=== PATIENT | male | born 1985 | race Caucasian/White ===

== ENCOUNTER 2016-08-03 17:21 | Emergency (ER) | payer OTHER ==
[2016-08-03] MEDS ORDERED: DIPH,PERTUS(ACELL)TETVAC-LF 0.5 ML VIAL IM ONE (17:52)
--- NOTE | 2016-08-03 18:24 | ED ---
Animal Bite HPI - General Chief Complaint: Animal Bite Stated Complaint: dog bite rt thumb Time Seen by Provider: 08/03/16 17:45 Source: patient Mode of arrival: ambulatory Limitations: no limitations - History of Present Illness Initial Comments: 31-year-old male presents emergency Department chief complaint of dog bite on his right thumb by his new 8-week-old puppy 3 days ago. Patient reports that he 's noticed some swelling over the distal thumb. Patient reports that he did squeeze and felt that there were some pus draining. Patient states that he has no redness or significant swelling or decreased range of motion. Patient reports he does not know the status of his tetanus vaccination. He reports that the dog has not received the rabies vaccine but is planning to this week. They state the has had no symptoms of rabies. Patient states that he does not want to undergo rabies prophylaxis.Patient denies any recent fever, chills, shortness of breath, chest pain, back pain, abdominal pain, nausea vomiting, numbness or tingling, dysuria or hematuria, constipation or diarrhea, headaches or visual changes, or any other current symptoms - Related Data Home Medications Medication Instructions Recorded Confirmed Albuterol Inhaler [Ventolin Hfa 2 puff INHALATION RT-Q6H PRN 08/03/16 08/03/16 Inhaler] Loratadine-Pseudoeph 10-240 mg 1 tab PO DAILY PRN 08/03/16 08/03/16 [Claritin-D 24 Hr] Previous Rx's Medication Instructions Recorded Amoxicillin/Potassium Clav 1 tab PO Q12HR #20 tab 08/03/16 [Augmentin 875-125 Tablet] Ibuprofen [Motrin] 600 mg PO Q8HR PRN #20 tab 08/03/16 Allergies Allergy/AdvReac Type Severity Reaction Status Date / Time No Known Allergies Allergy Verified 08/03/16 17:55 Review of Systems ROS Statement: Those systems with pertinent positive or pertinent negative responses have been documented in the HPI. ROS Other: All systems not noted in ROS Statement are negative. Past Medical History Past Medical History: No Reported History History of Any Multi-Drug Resistant Organisms: None Reported Past Surgical History: No Surgical Hx Reported Past Psychological History: PTSD Smoking Status: Current every day smoker Past Alcohol Use History: None Reported Past Drug Use History: Marijuana General Exam Limitations: no limitations General appearance: alert, in no apparent distress Head exam: Present: atraumatic, normocephalic, normal inspection Eye exam: Present: normal appearance, PERRL, EOMI. Absent: scleral icterus, conjunctival injection, periorbital swelling ENT exam: Present: normal exam, mucous membranes moist Neck exam: Present: normal inspection. Absent: tenderness, meningismus, lymphadenopathy Respiratory exam: Present: normal lung sounds bilaterally. Absent: respiratory distress, wheezes, rales, rhonchi, stridor Cardiovascular Exam: Present: regular rate, normal rhythm, normal heart sounds. Absent: systolic murmur, diastolic murmur, rubs, gallop, clicks GI/Abdominal exam: Present: soft, normal bowel sounds. Absent: distended, tenderness, guarding, rebound, rigid Extremities exam: Present: normal inspection, full ROM, normal capillary refill , other (Patient has superficial puncture wounds over the distal right thumb near the nail bed. Also the second finger near the proximal interphalangeal joint. No evidence of erythema, decreased range of motion or swelling. Patient does have full range motion and sensation in all distal fingertips. Capillary refill. Splint 2 seconds.). Absent: tenderness, pedal edema, joint swelling, calf tenderness Back exam: Present: normal inspection Neurological exam: Present: alert, oriented X3, CN II-XII intact Psychiatric exam: Present: normal affect, normal mood Skin exam: Present: warm, dry, intact, normal color. Absent: rash Course Vital Signs 08/03/16 08/03/16 17:34 18:32 Temperature 98.0 F 97.6 F Pulse Rate 65 64 Respiratory 20 18 Rate Blood Pressure 125/59 129/72 O2 Sat by Pulse 99 94 L Oximetry Medical Decision Making - Medical Decision Making 31-year-old male presents emergency Department chief complaint of dog bite on his right thumb by his new 8-week-old puppy 3 days ago. Patient reports that he 's noticed some swelling over the distal thumb. Patient reports that he did squeeze and felt that there were some pus draining. Patient states that he has no redness or significant swelling or decreased range of motion. Patient reports he does not know the status of his tetanus vaccination. He reports that the dog has not received the rabies vaccine but is planning to this week. They state the has had no symptoms of rabies. Patient states that he does not want to undergo rabies prophylaxis.Patient denies any recent fever, chills, shortness of breath, chest pain, back pain, abdominal pain, nausea vomiting, numbness or tingling, dysuria or hematuria, constipation or diarrhea, headaches or visual changes, or any other current symptoms. Patient's right thumb has 2 superficial puncture wounds and the second finger also does have another superficial puncture wound. No evidence of drainage at this time. No evidence of redness or swelling or decreased range of motion. Patient be placed on Augmentin and updated on his tetanus vaccine. He does refuse the rabies prophylaxis as he can monitor the dog. Patient states that he will follow-up if it seems to worsen. Patient agrees to treatment plan will comply. Disposition Clinical Impression: Dog bite of thumb Disposition: HOME SELF-CARE Condition: Good Instructions: Animal Bite (ED) Additional Instructions: Continue do warm soaks of the hand. Monitor for any worsening redness or swelling of the hands or fingers. Return to emergency department if that does occur. Patient denies to complete antibiotic prescription. Prescriptions: Amoxicillin/Potassium Clav [Augmentin 875-125 Tablet] 1 tab PO Q12HR #20 tab Ibuprofen [Motrin] 600 mg PO Q8HR PRN #20 tab PRN Reason: Pain Referrals: Pedro Pacheco DO [Primary Care Provider] - 1-2 days Time of Disposition: 18:22
[2016-08-03 18:33] VITALS: BP 129/72; PULSE 64; RESP 18; TEMP 97.6
== END 2016-08-03 18:48 | disposition home or self-care (01) ==
LOC: EC 17:21
DX: S60.371A Other superficial bite of right thumb, initial encounter (principal); S60.470A Other superficial bite of right index finger, initial encounter; F17.200 Nicotine dependence, unspecified, uncomplicated; Z23 Encounter for immunization; W54.0XXA Bitten by dog, initial encounter
CPT/HCPCS: 90471; 90715; 99283

== ENCOUNTER → 2017-07-02 | Outpatient (CLI) | payer OTHER ==
[2017-07-02 12:25] LABS: Basophils % (A) 0 %; Eosinophils # (A) 0.3 k/uL (0-0.7); Eosinophils % (A) 4 %; HCT 50.2 % (39.0-53.0); HGB 17.2 gm/dL (13.0-17.5); Lymphocytes # (A) 2.2 k/uL (1.0-4.8); Lymphocytes % (A) 26 %; MCH 30.7 pg (25.0-35.0); MCHC 34.3 g/dL (31.0-37.0); MCV 89.6 fL (80.0-100.0); Mean Platelet Volume 7.8; Monocytes # (A) 0.7 k/uL (0-1.0); Monocytes % (A) 8 %; Neutrophils # (A) 5.4 k/uL (1.3-7.7); Neutrophils % (A) 62 %; Platelet Count 230 k/uL (150-450); RDW 12.8 % (11.5-15.5); WBC 8.7 k/uL (3.8-10.6)
[2017-07-02 12:39] LABS: Potassium 4.4 mmol/L (3.5-5.1)
== END ==
LOC: LABWHC1 11:30
PROVIDERS: ATTEND Orthopaedic Surgery
DX: Z01.812 Encounter for preprocedural laboratory examination (principal); M23.91 Unspecified internal derangement of right knee
CPT/HCPCS: 36415; 80051; 85025

== ENCOUNTER 2017-07-12 06:09 | Day surgery (SDC) | payer OTHER ==
[2017-07-06 14:22] VITALS: BMI 33.5
--- NOTE | 2017-07-11 14:46 | HP ---
HISTORY AND PHYSICAL DATE OF SERVICE: 07/12/2017 Praveen Armas is a 32-year-old patient seen with right knee pain. He was found to have significant meniscal tears as well as an anterior cruciate ligament tear. Treatment options were discussed with him. We reviewed arthroscopy with partial meniscectomy as well as ACL reconstruction. Initially, he had agreed on that, but he did call back and decided against proceeding with the allograft ACL reconstruction and simply want to proceed with the arthroscopic debridement and partial meniscectomy. We understand that he may have some persistent instability and he may need additional surgery in the future. He was understandable. Consent was obtained for the partial meniscectomy and debridement. PAST MEDICAL HISTORY: Noncontributory. PAST SURGICAL HISTORY: Noncontributory. DAILY MEDICATIONS: None reported. SOCIAL HISTORY: Currently smokes half-pack cigarettes daily. PHYSICAL EVALUATION OF THE RIGHT KNEE: Range of motion is 0 to 130 degrees. There is a mild effusion. Tenderness along the medial and lateral joint lines. Positive medial Mino's. Positive lateral Mino's; +2 Jesus. Collateral ligaments are stable. Distal neurovascular exam is intact. . RIGHT KNEE RADIOGRAPHS: Revealed mild osteoarthritis. A right knee MRI revealed ACL tear, medial lateral meniscal tears, full-thickness osteochondral defect, lateral compartment and large joint effusion. IMPRESSION: Internal derangement of right knee with medial meniscal tear, lateral meniscal tear and ACL tear. PLAN: Right knee arthroscopy with partial meniscectomy, debridement, ACL tear. MMODL / IJN: [id number] /
[~2017-07-12 06:09] MED LIST: DEXAMETHASONE SOD PHOSPHATE 10 MG/ML 1 ML VIAL IV ONE; LACTATED RINGERS 1,000 ML IV SCH; MIDAZOLAM 2 MG/2 ML VIAL IV PRN; MORPHINE SULFATE 4 MG/ML SYRINGE IV PRN; ONDANSETRON 4 MG/2 ML VIAL IVP ONE; ceFAZolin IN SWFI 2 GM/20 ML SYRINGE IVP ONE
[2017-07-12 06:29] VITALS: RESP 16
[2017-07-12] MEDS ORDERED: LIDOCAINE 1% 20 ML VIAL (10MG/ML) FOR IV START INTRADERMA ONE (06:40)
[2017-07-12] MEDS ORDERED: LIDOCAINE 1% INJ 10MG/ML (20 ML MDV) ONE (07:29)
[2017-07-12] MEDS ORDERED: fentaNYL (PF) 50 MCG/ML 2 ML AMP ONE (07:29)
[2017-07-12] MEDS ORDERED: PROPOFOL 10 MG/ML 20 ML VIAL IV ONE (07:29)
[2017-07-12] MEDS ORDERED: SUCCINYLCHOLINE CHLORIDE 100 MG/5 ML SYR IV ONE (07:29)
[2017-07-12] MEDS ORDERED: MIDAZOLAM 2 MG/2 ML VIAL ONE (07:29)
[2017-07-12] MEDS ORDERED: KETOROLAC 30 MG/ML 1 ML VIAL ONE (07:29)
[2017-07-12] MEDS ORDERED: BUPIVACAINE (PF) 0.25% 30 ML VIAL INTRAARTIC ONE (07:47)
[2017-07-12] MEDS ORDERED: ACETAMINOPHEN IV (For NPO) 1,000 MG/100 ML VIAL IVPB ONE (08:28)
--- NOTE | 2017-07-12 08:31 | P.OP ---
Date of Procedure: 07/12/17 Preoperative Diagnosis: Internal derangement right knee Postoperative Diagnosis: 1. Tear medial and lateral meniscus right knee 2. Grade 2 chondromalacia medial femoral condyle right knee 3. 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 ACL tear right knee 5. Reactive synovitis medial and suprapatellar compartments right knee Procedure(s) Performed: 1. Arthroscopic partial medial and lateral meniscectomy right knee 2. Arthroscopic chondroplasty medial femoral condyle right knee 3. Arthroscopic chondroplasty lateral tibial plateau right knee 4. Arthroscopic debridement ACL tear right knee 5. Arthroscopic partial synovectomy medial and suprapatellar compartments right knee Anesthesia: GETA Surgeon: Juan Jose Estimated Blood Loss (ml): 9 Pathology: none sent Condition: stable Disposition: PACU Indications for Procedure: 32-year-old patient seen with right knee pain. After having treatment options discussed, he elected to proceed with arthroscopy. Operative Findings: see description of procedure Description of Procedure: Patient was taken to the operative suite. Patient underwent a general anesthetic by the department of anesthesia. Patient was given preoperative antibiotics. The right lower extremity was placed in a well-padded arthroscopic leg moore. The right leg was prepped and draped in the normal sterile orthopedic fashion. A lateral parapatellar and suprapatellar incision was made. Trochars were inserted. Arthroscopy was initiated. Suprapatellar pouch revealed diffuse thick reactive synovitis. The patellofemoral joint appeared to articulate congruently. There was no chondromalacia. The scope was guided into the medial gutter. No loose bodies or plica were identified. The scope was then guided into the medial compartment. A medial parapatellar incision was made. Trocar inserted followed by probe. There was a radial tear posterior horn medial meniscus. There was an area of grade 2 chondromalacia weightbearing surface medial femoral condyle with some small osteochondral tears present. There was some reactive synovitis anteriorly. I performed a partial medial meniscectomy down to stable tissue. I performed a chondroplasty medial femoral condyle down to stable tissue. I performed a partial synovectomy. The residual meniscus was stable. Scope and probe were then guided into the intercondylar notch. There was an obvious ACL tear present. Upon probing there may have been some very small residual intact fibers but essentially a functional a complete ACL tears pleasant with obvious instability. The PCL appeared stable. I introduced a motorized shaver and debrided the residual remnants of the skin ACL stump. The shaver was removed. There was full extension of the knee noted with no impingement in the notch.. The scope and probe were then guided into lateral compartment. There was a small radial tear mid body lateral meniscus. There was an area of grade 2 chondromalacia with a central fissure in the tibial plateau. No reactive synovitis, no loose bodies or abnormalities involving the lateral femoral condyle. I performed a chondroplasty to lateral tibial plateau getting down to stable articular tissue. Shaver was removed. The scope was in guided back into the suprapatellar compartment. I introduced a motorized shaver into the suprapatellar compartment. I debrided some piecemeal fragments of meniscus I encountered. I performed a partial synovectomy. Instruments were now removed from the joint. The joint was infiltrated with .25% Marcaine. Steri-Strips were applied to the portal sites. Sterile dressings were applied. The patient was placed into a ANDREW hose. No tourniquet was utilized. The patient was awakened, transferred to a bed and taken to recovery stable satisfactory condition.
[2017-07-12 08:35] VITALS: TEMP 96.9
[2017-07-12] MEDS: HYDROmorphone 0.5 MG/0.5 ML SYRINGE IVP PRN ×2 (08:51→09:02)
[2017-07-12 09:51] VITALS: BP 111/67; PULSE 60
== END 2017-07-12 10:09 | disposition home or self-care (01) ==
LOC: OR 06:09
PROVIDERS: ATTEND Orthopaedic Surgery
DX: S83.241A Other tear of medial meniscus, current injury, right knee, initial encounter (principal); S83.281A Other tear of lateral meniscus, current injury, right knee, initial encounter; S83.511A Sprain of anterior cruciate ligament of right knee, initial encounter; X58.XXXA Exposure to other specified factors, initial encounter; M94.261 Chondromalacia, right knee; M65.861 Other synovitis and tenosynovitis, right lower leg; F17.210 Nicotine dependence, cigarettes, uncomplicated
CPT/HCPCS: 29880; J2250; J1100; J2405; J2001; J3010; J1885; J0131; J0330; J2704; J1170; J0690

== ENCOUNTER 2017-10-12 10:00 | Emergency (ER) | payer OTHER ==
[2017-10-12] MEDS ORDERED: SODIUM CHLORIDE 0.9% 1,000 ML IV STA (10:34)
--- NOTE | 2017-10-12 10:41 | ED ---
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 He does smoke marijuana. Drinking hot liquids like coffee aggravates the heartburn he has ongoing heartburn but chest pain - Related Data Home Medications Medication Instructions Recorded Confirmed No Known Home Medications 10/12/17 10/12/17 Allergies Allergy/AdvReac Type Severity Reaction Status Date / Time No Known Allergies Allergy Verified 10/12/17 10:21 Review of Systems ROS Statement: Those systems with pertinent positive or pertinent negative responses have been documented in the HPI. ROS Other: All systems not noted in ROS Statement are negative. Past Medical History Past Medical History: No Reported History History of Any Multi-Drug Resistant Organisms: None Reported Past Surgical History: Orthopedic Surgery Additional Past Surgical History / Comment(s): right knee Past Psychological History: PTSD Smoking Status: Current every day smoker Past Alcohol Use History: None Reported Past Drug Use History: Marijuana General Exam - General Exam Comments Initial Comments: General: The patient is awake and alert, in no distress, and does not appear acutely ill. Skin: Skin is warm and dry and no rashes or lesions are noted. Eye: Pupils are equal, round and reactive to light, extra-ocular movements are intact; there is normal conjunctiva bilaterally. Ears, nose, mouth and throat: There are moist mucous membranes and no oral lesions. Neck: The neck is supple, there is no tenderness or JVD. Cardiovascular: There is a regular rate and rhythm. No murmur, rub or gallop is appreciated. Respiratory: To auscultation bilateral, no wheezing no rhonchi no distress respiratory downey noticed Gastrointestinal: Tender in epigastric area Back: There is no tenderness to palpation in the midline. There is no obvious deformity. Musculoskeletal: Normal ROM, no tenderness, There is no pedal edema. There is no calf tenderness or swelling. No cords were appreciated. Neurological: CN II-XII intact, Cranial nerves III through XII are intact. There are no obvious motor or sensory deficits. Coordination appears grossly intact. Speech is normal. Psychiatric: Cooperative, appropriate mood & affect, normal judgment. Limitations: no limitations Course Vital Signs 10/12/17 10/12/17 10:07 12:11 Temperature 97.3 F L 97.4 F L Pulse Rate 65 49 L Respiratory 18 18 Rate Blood Pressure 119/70 111/67 O2 Sat by Pulse 99 98 Oximetry Plan reassessment noticed him EKG is a sinus bradycardia ventricular rate 65 KS interval is 158 QRS duration is 88 QT/QTc is 438/419 noticed some T-wave inversion in lead [address] elevation or ST depression noticed any other leads Medical Decision Making - Medical Decision Making EKG is normal, CBC, INR, compress metabolic panel are unremarkable noticed CK slightly elevated is not high enough to be diagnosed as a reactive myolysis chest x-ray is fine EKG didn't show any STEMI troponin is negative so his urinalysis. These was discussed with the patient considering his family history of heart disease and risk factor of smoking he is advised to see Dr. Anaya and get a stress test done he has ongoing card that he he will continue or he will go on her PPIs and he would need a scope will refer him to . - Lab Data Result diagrams: 10/12/17 10:45 10/12/17 10:45 Lab Results 10/12/17 10/12/17 10/12/17 Range/Units 10:45 10:45 10:45 WBC 8.7 (3.8-10.6) k/uL RBC 5.23 (4.30-5.90) m/uL Hgb 15.8 (13.0-17.5) gm/dL Hct 49.0 (39.0-53.0) % MCV 93.6 (80.0-100.0) fL MCH 30.2 (25.0-35.0) pg MCHC 32.3 (31.0-37.0) g/dL RDW 13.3 (11.5-15.5) % Plt Count 208 (150-450) k/uL Neutrophils % 67 % Lymphocytes % 24 % Monocytes % 4 % Eosinophils % 4 % Basophils % 1 % Neutrophils # 5.8 (1.3-7.7) k/uL Lymphocytes # 2.1 (1.0-4.8) k/uL Monocytes # 0.3 (0-1.0) k/uL Eosinophils # 0.3 (0-0.7) k/uL Basophils # 0.0 (0-0.2) k/uL PT (9.0-12.0) sec INR (<1.2) APTT (22.0-30.0) sec Sodium 141 (137-145) mmol/L Potassium 4.3 (3.5-5.1) mmol/L Chloride 107 (98-107) mmol/L Carbon Dioxide 27 (22-30) mmol/L Anion Gap 7 mmol/L BUN 11 (9-20) mg/dL Creatinine 0.88 (0.66-1.25) mg/dL Est GFR (CKD-EPI)AfAm >90 (>60 ml/min/1.73 sqM) Est GFR (CKD-EPI)NonAf >90 (>60 ml/min/1.73 sqM) Glucose 114 H (74-99) mg/dL Plasma Lactic Acid Moises (0.7-2.0) mmol/L Calcium 9.9 (8.4-10.2) mg/dL Total Bilirubin 0.5 (0.2-1.3) mg/dL AST 36 (17-59) U/L ALT 48 (21-72) U/L Alkaline Phosphatase 50 (38-126) U/L Total Creatine Kinase 330 H (55-170) U/L CK-MB (CK-2) 0.8 (0.0-2.4) ng/mL CK-MB (CK-2) Rel Index 0.2 Troponin I <0.012 (0.000-0.034) ng/mL Total Protein 6.9 (6.3-8.2) g/dL Albumin 4.3 (3.5-5.0) g/dL Urine Color Urine Appearance (Clear) Urine pH (5.0-8.0) Ur Specific [place] (1.001-1.035) Urine Protein (Negative) Urine Glucose (UA) (Negative) Urine Ketones (Negative) Urine Blood (Negative) Urine Nitrite (Negative) Urine Bilirubin (Negative) Urine Urobilinogen (<2.0) mg/dL Ur Leukocyte Esterase (Negative) 10/12/17 10/12/1710/12/18 Range/Units 10:45 10:45 12:20 WBC (3.8-10.6) k/uL RBC (4.30-5.90) m/uL Hgb (13.0-17.5) gm/dL Hct (39.0-53.0) % MCV (80.0-100.0) fL MCH (25.0-35.0) pg MCHC (31.0-37.0) g/dL RDW (11.5-15.5) % Plt Count (150-450) k/uL Neutrophils % % Lymphocytes % % Monocytes % % Eosinophils % % Basophils % % Neutrophils # (1.3-7.7) k/uL Lymphocytes # (1.0-4.8) k/uL Monocytes # (0-1.0) k/uL Eosinophils # (0-0.7) k/uL Basophils # (0-0.2) k/uL PT 10.0 (9.0-12.0) sec INR 1.0 (<1.2) APTT 25.0 (22.0-30.0) sec Sodium (137-145) mmol/L Potassium (3.5-5.1) mmol/L Chloride (98-107) mmol/L Carbon Dioxide (22-30) mmol/L Anion Gap mmol/L BUN (9-20) mg/dL Creatinine (0.66-1.25) mg/dL Est GFR (CKD-EPI)AfAm (>60 ml/min/1.73 sqM) Est GFR (CKD-EPI)NonAf (>60 ml/min/1.73 sqM) Glucose (74-99) mg/dL Plasma Lactic Acid Moises 1.3 (0.7-2.0) mmol/L Calcium (8.4-10.2) mg/dL Total Bilirubin (0.2-1.3) mg/dL AST (17-59) U/L ALT (21-72) U/L Alkaline Phosphatase (38-126) U/L Total Creatine Kinase (55-170) U/L CK-MB (CK-2) (0.0-2.4) ng/mL CK-MB (CK-2) Rel Index Troponin I (0.000-0.034) ng/mL Total Protein (6.3-8.2) g/dL Albumin (3.5-5.0) g/dL Urine Color Light Yellow Urine Appearance Clear (Clear) Urine pH 7.0 (5.0-8.0) Ur Specific [place] 1.007 (1.001-1.035) Urine Protein Negative (Negative) Urine Glucose (UA) Negative (Negative) Urine Ketones Negative (Negative) Urine Blood Negative (Negative) Urine Nitrite Negative (Negative) Urine Bilirubin Negative (Negative) Urine Urobilinogen <2.0 (<2.0) mg/dL Ur Leukocyte Esterase Negative (Negative) Disposition Clinical Impression: Chest pain, Gastroesophageal reflux disease Disposition: HOME SELF-CARE Condition: Good Instructions: Chest Pain (ED) Additional Instructions: Aspirin 81 mg by mouth daily and omeprazole 20 mg by mouth daily is over-the- counter Is patient prescribed a controlled substance at d/c from ED?: No Referrals: None,Stated [Primary Care Provider] - 1-2 days Arnold Sandoval MD [STAFF PHYSICIAN] - 1-2 days Alvin Washburn MD [STAFF PHYSICIAN] - 1-2 days
[2017-10-12 11:15] LABS: ALT 48 U/L (21-72); AST 36 U/L (17-59); Albumin 4.3 g/dL (3.5-5.0); Alkaline Phosphatase 50 U/L (38-126); Anion Gap 7 mmol/L; Blood Urea Nitrogen 11 mg/dL (9-20); Calcium 9.9 mg/dL (8.4-10.2); Carbon Dioxide 27 mmol/L (22-30); Chloride 107 mmol/L (98-107); Glucose 114 mg/dL (74-99); Potassium 4.3 mmol/L (3.5-5.1); Sodium 141 mmol/L (137-145); Total Bilirubin 0.5 mg/dL (0.2-1.3); Total Protein 6.9 g/dL (6.3-8.2)
[2017-10-12 11:16] LABS: Basophils % (A) 1 %; Eosinophils # (A) 0.3 k/uL (0-0.7); Eosinophils % (A) 4 %; HGB 15.8 gm/dL (13.0-17.5); Lymphocytes # (A) 2.1 k/uL (1.0-4.8); Lymphocytes % (A) 24 %; MCH 30.2 pg (25.0-35.0); MCHC 32.3 g/dL (31.0-37.0); MCV 93.6 fL (80.0-100.0); Mean Platelet Volume 7.2; Monocytes # (A) 0.3 k/uL (0-1.0); Monocytes % (A) 4 %; Neutrophils # (A) 5.8 k/uL (1.3-7.7); Neutrophils % (A) 67 %; Platelet Count 208 k/uL (150-450); RBC 5.23 m/uL (4.30-5.90); RDW 13.3 % (11.5-15.5); WBC 8.7 k/uL (3.8-10.6)
--- NOTE | 2017-10-12 11:47 | XR ---
EXAMINATION TYPE: XR chest 2V DATE OF EXAM: 10/12/2017 COMPARISON: NONE HISTORY: Weakness and chest pain 3 days TECHNIQUE: Frontal and lateral views of the chest are obtained. FINDINGS: There is no focal air space opacity, pleural effusion, or pneumothorax seen. The cardiac silhouette size is within normal limits. The osseous structures are intact. There are overlying car diac leads. IMPRESSION: No acute cardiopulmonary process.
[2017-10-12 11:58] LABS: Creatine Kinase 330 U/L (55-170)
[2017-10-12 12:11] LABS: Creatine Kinase MB 0.8 ng/mL (0.0-2.4); Troponin I <0.012 ng/mL (0.000-0.034)
[2017-10-12 12:32] LABS: Appearance,Urine Clear (Clear); Bilirubin,Urine Negative (Negative); Blood,Urine Negative (Negative); Color,Urine Light Yellow; Glucose,Urine (UA) Negative (Negative); Ketones,Urine Negative (Negative); Leukocyte Esterase,Urine Negative (Negative); Nitrite,Urine Negative (Negative); Protein,Urine Negative (Negative); Specific Gravity,Urine 1.007 (1.001-1.035); Urobilinogen,Urine <2.0 mg/dL (<2.0)
[2017-10-12 13:08] VITALS: BP 102/68; PULSE 54; RESP 15; TEMP 97.2
== END 2017-10-12 13:23 | disposition home or self-care (01) ==
LOC: EC 10:00
DX: K21.9 Gastro-esophageal reflux disease without esophagitis (principal); R53.1 Weakness; R53.83 Other fatigue; F17.200 Nicotine dependence, unspecified, uncomplicated
CPT/HCPCS: 36415; 71046; 80053; 81003; 82550; 82553; 83605; 84484; 85025; 85610; 85730; 93005; 96360; 96361; 99285

== ENCOUNTER 2020-09-14 17:49 | Emergency (ER) | payer OTHER ==
[2020-09-14 17:55] VITALS: BP 118/75; PULSE 65; RESP 18; TEMP 97.7
[2020-09-14] MEDS ORDERED: KETOROLAC 15 MG/ML 1 ML VIAL IM STA (18:08)
--- NOTE | 2020-09-14 18:41 | XR ---
EXAMINATION TYPE: XR knee complete RT DATE OF EXAM: 09/14/2020 COMPARISON: NONE HISTORY: Knee pain TECHNIQUE: 3 views FINDINGS: I see no fracture nor dislocation. Joint spaces are normal. There are no pathologic calcifi cations. There is spurring on the superior patella. IMPRESSION: Negative right knee exam. No fracture.
--- NOTE | 2020-09-14 18:59 | ED ---
Lower Extremity Injury HPI - General Chief Complaint: Extremity Injury, Lower Stated Complaint: rt knee pain Time Seen by Provider: 09/14/20 18:04 Source: patient, RN notes reviewed Mode of arrival: wheelchair Limitations: no limitations - History of Present Illness Initial Comments: Patient is a 35-year-old male that presents emergency department complaining of right knee pain. He notes he has a history of chronic right knee pain such as [facility] and meniscus issues. He notes that he was walking in his backyard picking up sticks when he felt a sharp pain in his knee. 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 He notes that he does have a knee brace that he can wear if needed. He denied any other issues or complaints at this time. He denied any chest pain shortness breath headache nausea vomiting diarrhea constipation fever fatigue chills. - Related Data Home Medications Medication Instructions Recorded Confirmed Ibuprofen [Motrin Ib] 400 mg PO Q8H PRN 09/14/20 09/14/20 Allergies Allergy/AdvReac Type Severity Reaction Status Date / Time No Known Allergies Allergy Verified 09/14/20 18:48 Review of Systems ROS Statement: Those systems with pertinent positive or pertinent negative responses have been documented in the HPI. ROS Other: All systems not noted in ROS Statement are negative. Past Medical History Past Medical History: No Reported History History of Any Multi-Drug Resistant Organisms: None Reported Past Surgical History: Orthopedic Surgery Additional Past Surgical History / Comment(s): right knee Past Psychological History: PTSD Smoking Status: Current every day smoker Past Alcohol Use History: None Reported Past Drug Use History: None Reported, Marijuana General Exam Limitations: no limitations General appearance: alert, in no apparent distress Head exam: Present: atraumatic, normocephalic, normal inspection Eye exam: Present: normal appearance, PERRL, EOMI. Absent: scleral icterus, conjunctival injection, periorbital swelling Neck exam: Present: normal inspection Respiratory exam: Present: normal lung sounds bilaterally. Absent: respiratory distress, wheezes, rales, rhonchi, stridor Cardiovascular Exam: Present: regular rate, normal rhythm, normal heart sounds. Absent: systolic murmur, diastolic murmur, rubs, gallop, clicks Right Knee exam: Present: normal inspection, full ROM, tenderness (Medial aspect), swelling Course Vital Signs 09/14/20 17:52 Temperature 97.7 F Pulse Rate 65 Respiratory 18 Rate Blood Pressure 118/75 O2 Sat by Pulse 96 Oximetry Medical Decision Making - Medical Decision Making 35-year-old male complaining of right knee pain. X-ray right knee ordered. X-ray right knee negative for any acute fractures dislocations. Case discussed with Dr. Conte, patient discharge home with follow-up to primary care. - Radiology Data Radiology results: report reviewed, image reviewed Right knee x-ray: Negative right knee exam. Disposition Clinical Impression: Right knee pain Disposition: HOME SELF-CARE Condition: Stable Instructions (If sedation given, give patient instructions): Knee Pain (ED) Additional Instructions: Please return to the Emergency Department if symptoms worsen or any other concerns. Use knee brace as directed. Take Tylenol Motrin alternating them every 3 hours [id number] for pain control. Avoid any strenuous usual activity Is patient prescribed a controlled substance at d/c from ED?: No Referrals: None,Stated [Primary Care Provider] - 1-2 days Time of Disposition: 18:58
== END 2020-09-14 19:08 | disposition home or self-care (01) ==
LOC: EC 17:49
DX: M25.561 Pain in right knee (principal); F17.200 Nicotine dependence, unspecified, uncomplicated
CPT/HCPCS: 96372; 99283

== ENCOUNTER → 2020-11-22 | Outpatient (CLI) | payer OTHER ==
--- NOTE | 2020-11-22 21:36 | MR ---
EXAMINATION TYPE: MR knee RT wo con DATE OF EXAM: 11/22/2020 COMPARISON: Right knee x-ray September 14, 2020 HISTORY: Rt knee pain and swelling behind knee and on kneecap x4 years due to a football injury. Hist ory of prior surgery. TECHNIQUE: Multiplanar, multisequence imaging of the right knee is performed without IV contrast. FINDINGS: MEDIAL MENISCUS: Increased linear signal with horizontal and oblique component posterior horn medial meniscus extending to inferior articular surface. LATERAL MENISCUS: There is disruption or defect deeper aspect lateral meniscus involving central body and posterior horn felt to reflect postsurgical change. CRUCIATE LIGAMENTS: The posterior cruciate ligament is intact and unremarkable. Anterior cruciate lig ament is disrupted from its proximal posterior distal femoral attachment. COLLATERAL LIGAMENTS: The medial collateral ligament and lateral collateral ligament complex are inta ct and unremarkable. EXTENSOR MECHANISM: Visualized quadriceps and patellar tendons are intact. EFFUSION: No significant suprapatellar joint effusion. POPLITEAL CYST: No popliteal/marroquin cyst. TRICOMPARTMENT SPACES: Mild to moderate tricompartment joint space loss with mild spurring. CARTILAGE: Some cartilaginous loss lateral tibiofemoral compartment as there is some posterior fissur ing coronal image 25 distal femoral level. BONE MARROW SIGNAL: Small areas of diminished T1 and increased T2 signal posterior aspect distal late ral tibiofemoral articulation. OTHER: No additional significant abnormality is appreciated. IMPRESSION: 1. Postsurgical change to deep aspect the lateral meniscus involving central body and posterior horn . 2. Age-indeterminate proximal complete ACL tear. 3. Oblique full-thickness tear posterior horn medial meniscus. 4. Mild to moderate tricompartment degenerative changes greatest lateral tibiofemoral compartment as detailed above.
== END | disposition home or self-care (01) ==
LOC: RADMRIMAIN 15:04
PROVIDERS: ATTEND Orthopaedic Surgery
DX: S83.511A Sprain of anterior cruciate ligament of right knee, initial encounter (principal); S83.241A Other tear of medial meniscus, current injury, right knee, initial encounter; X58.XXXA Exposure to other specified factors, initial encounter

== ENCOUNTER 2021-01-12 08:57 | Day surgery (SDC) | payer OTHER ==
[2021-01-07 13:08] VITALS: BMI 30.2
--- NOTE | 2021-01-11 15:05 | HP ---
HISTORY AND PHYSICAL DATE OF SURGERY: 01/12/2021 Praveen Armas is a 35-year-old gentleman seen progressive right knee pain. We discussed options for treatment. He elected to proceed with right knee arthroscopy. Consent was obtained. PAST MEDICAL HISTORY: Noncontributory. PAST SURGICAL HISTORY: Right knee arthroscopy. DAILY MEDICATIONS: Ibuprofen. ALLERGIES: NONE. SOCIAL HISTORY: He smokes half pack of cigarettes daily. PHYSICAL EVALUATION OF THE RIGHT KNEE: Range of motion is zero to 130. Mild effusion. Tenderness, medial joint line. Positive medial Mino's. Plus 2 Jesus. Collateral ligaments stable. Distal neurovascular exam is intact. Radiographs of the right knee revealed mild osteoarthritis. MRI of right knee revealed a medial meniscal tear, ACL tear and osteoarthritis. IMPRESSION: Internal derangement of right knee with medial meniscal tear and ACL tear. PLAN: Right knee arthroscopy with partial meniscectomy and debridement. MMODL / IJN: [id number] /
[~2021-01-12 08:57] MED LIST changes: -DEXAMETHASONE SOD PHOSPHATE 10 MG/ML 1 ML VIAL IV ONE; +DEXAMETHASONE SOD PHOSPHATE 4 MG/ML 1 ML VIAL IV ONE; +LIDOCAINE 1% (10MG/ML) FOR IV START INTRADERMA PRN; -MORPHINE SULFATE 4 MG/ML SYRINGE IV PRN; -ceFAZolin IN SWFI 2 GM/20 ML SYRINGE IVP ONE
[2021-01-12 09:24] VITALS: RESP 16
[2021-01-12] MEDS ORDERED: BUPIVACAINE (PF) 0.25% 30 ML VIAL SQ ONE (10:07)
[2021-01-12] MEDS ORDERED: MIDAZOLAM 2 MG/2 ML VIAL ONE (10:14)
[2021-01-12] MEDS ORDERED: PROPOFOL 10 MG/ML 20 ML VIAL IV ONE (10:14)
[2021-01-12] MEDS ORDERED: fentaNYL (PF) 50 MCG/ML 2 ML AMP ONE (10:14)
[2021-01-12] MEDS ORDERED: KETOROLAC 15 MG/ML 1 ML VIAL ONE (10:14)
[2021-01-12] MEDS ORDERED: LIDOCAINE 1% INJ 10MG/ML (20 ML MDV) ONE (10:14)
[2021-01-12] MEDS: HYDROmorphone 0.5 MG/0.5 ML SYRINGE IVP PRN ×2 (11:13→11:28)
--- NOTE | 2021-01-12 11:17 | P.OP ---
Date of Procedure: 01/12/21 Preoperative Diagnosis: Internal derangement right knee Postoperative Diagnosis: 1. Complex tear medial meniscus right knee 2. 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 ACL tear right knee 4. Reactive synovitis medial, lateral and suprapatellar compartments right knee Procedure(s) Performed: 1. Arthroscopic partial medial meniscectomy right knee 2. Arthroscopic chondroplasty lateral tibial plateau right knee 3. Arthroscopic partial synovectomy medial, lateral and suprapatellar compartments right knee Anesthesia: SANDROA, local Surgeon: Juan Jose Estimated Blood Loss (ml): 7 Pathology: none sent Condition: stable Disposition: PACU Indications for Procedure: 35-year-old gentleman seen with progressive right knee pain. After treatment options were discussed with him he elected to proceed with arthroscopy. Operative Findings: see description of procedure Description of Procedure: Patient was taken to the operative suite. Patient underwent a general anesthetic by the department of anesthesia. Patient was given preoperative antibiotics. The right lower extremity was placed in a well-padded arthroscopic leg moore. The right leg was prepped and draped in the normal sterile ortho pedic fashion. A lateral parapatellar and suprapatellar incision was made. Trochars were inserted. Arthroscopy was initiated. Suprapatellar pouch revealed diffuse thick reactive synovitis. The patellofemoral joint appeared to articulate congruently. There was grade 1 chondromalacia with no osteochondral tears present. The scope was guided into the medial gutter. No loose bodies or plica were identified. The scope was then guided into the medial compartment. A medial parapatellar incision was made. Trocar inserted followed by probe. There was a complex tear involving the posterior horn of the medial meniscus. There were grade 1 chondromalacia changes of the medial femoral condyle without osteochondral tears present. There was some thick reactive synovitis anteriorly. I performed a partial medial meniscectomy getting down to stable meniscal tissue. I performed a partial synovectomy decompressing the thick reactive synovitis. Residual meniscus was stable. There was good decompression of the synovitis. Scope and probe were then guided into the intercondylar notch. Cruciates were identified. There was a vacant lateral wall sign. There was complete tear of the ACL off the lateral wall. The ACL itself appeared scarred down to PCL. At this point after taking the knee through range of motion and it appeared be any impingement and therefore left that intact. The scope and probe were then guided into lateral compartment. The lateral meniscus was stable. There were grade 2/3 chondromalacia changes of lateral tibial plateau with diffuse osteochondral flap tears present. There was some thick reactive synovitis anteriorly. I performed a chondroplasty of the tibial plateau getting down to stable osteochondral tissue. I performed a partial synovectomy decompressing the thick reactive synovitis. The shaver was removed. The residual osteochondral surface was stable. There was good decompression of the synovitis. The scope was in guided back into the suprapatellar compartment. I introduced a motorized shaver into the suprapatellar compartment. I debrided some piecemeal fragments of meniscus I encountered. I performed a partial synovectomy. The shaver was removed. There appeared to be good decompression of the synovitis. I now took one more look around the entire knee, no residual debris. Instruments were now removed from the joint. The joint was infiltrated with .25% Marcaine. Steri-Strips were applied to the portal sites. Sterile dressings were applied. The patient was placed into a ANDREW hose. No tourniquet was utilized. The patient was awakened, transferred to a bed and taken to recovery stable satisfactory condition.
[2021-01-12 11:18] VITALS: TEMP 96.8
[2021-01-12 12:07] VITALS: BP 112/73; PULSE 58
== END 2021-01-12 12:05 | disposition home or self-care (01) ==
LOC: OR 08:57
PROVIDERS: ATTEND Orthopaedic Surgery
DX: S83.231A Complex tear of medial meniscus, current injury, right knee, initial encounter (principal); S83.511A Sprain of anterior cruciate ligament of right knee, initial encounter; M94.261 Chondromalacia, right knee; M65.861 Other synovitis and tenosynovitis, right lower leg; F17.210 Nicotine dependence, cigarettes, uncomplicated
CPT/HCPCS: 29881; 29876; J2250; J1100; J0690; J2405; J2001; J3010; J1885; J2704; J1170

== ENCOUNTER 2021-10-06 07:48 | Emergency (ER) | payer OTHER ==
[2021-10-06 07:56] VITALS: BP 127/76; PULSE 73; RESP 18; TEMP 97.6
[2021-10-06] MEDS ORDERED: ONDANSETRON 4 MG/2 ML VIAL IVP STA (08:11)
[2021-10-06] MEDS ORDERED: KETOROLAC 15 MG/ML 1 ML VIAL IVP STA (08:11)
[2021-10-06] MEDS ORDERED: HYDROmorphone 1 MG/ML 1 ML SYRINGE IVP STA (08:11)
[2021-10-06] MEDS ORDERED: methylPREDNISolone SOD SUCCI 125 MG/2 ML VIAL IV STA (08:11)
[2021-10-06] MEDS ORDERED: ORPHENADRINE 30 MG/ML 2 ML VIAL IVP STA (08:11)
--- NOTE | 2021-10-06 09:35 | ED ---
Back Pain HPI - General Chief Complaint: Back Pain/Injury Stated Complaint: Back pain Time Seen by Provider: 10/06/21 07:59 Source: patient, RN notes reviewed Limitations: no limitations - History of Present Illness Initial Comments: This a 36-year-old -year-old male presents emergency Department with chief complaint of back pain. [facility] had CT of his back showing herniated, bulging disc. Patient states pain is uncontrolled today he states he does not like taking pain meds but states that it's not controlled. Patient denies any bowel, bladder incontinence or retention denies any saddle anesthesias no lower extremity paresthesias. Patient has pain radiating down his right leg to his knee. Patient states he had injury when he was lifting some carpeting and fell backwards. - Related Data Home Medications Medication Instructions Recorded Confirmed Ibuprofen [Motrin Ib] 400 mg PO Q8H PRN 09/14/20 01/12/21 Previous Rx's Medication Instructions Recorded HYDROcodone/APAP 7.5-325MG [Tarrs 1 each PO Q6HR PRN #18 tab 01/12/21 7.5] HYDROcodone/APAP 5-325MG [Tarrs 5] 1 each PO Q6HR PRN #12 tab 10/06/21 Allergies Allergy/AdvReac Type Severity Reaction Status Date / Time No Known Allergies Allergy Verified 10/06/21 07:56 Review of Systems ROS Statement: Those systems with pertinent positive or pertinent negative responses have been documented in the HPI. ROS Other: All systems not noted in ROS Statement are negative. Past Medical History Past Medical History: No Reported History History of Any Multi-Drug Resistant Organisms: None Reported Past Surgical History: Orthopedic Surgery Additional Past Surgical History / Comment(s): right knee SX Past Anesthesia/Blood Transfusion Reactions: No Reported Reaction Past Psychological History: PTSD Smoking Status: Current every day smoker Past Alcohol Use History: None Reported Past Drug Use History: Marijuana - Past Family History Brother(s) Family Medical History: Deep Vein Thrombosis (DVT) General Exam Limitations: no limitations General appearance: alert, in no apparent distress Head exam: Present: atraumatic, normocephalic, normal inspection Neck exam: Present: normal inspection. Absent: tenderness, meningismus, lymphadenopathy Respiratory exam: Present: normal lung sounds bilaterally. Absent: respiratory distress, wheezes, rales, rhonchi, stridor Cardiovascular Exam: Present: regular rate, normal rhythm, normal heart sounds. Absent: systolic murmur, diastolic murmur, rubs, gallop, clicks GI/Abdominal exam: Present: soft, normal bowel sounds. Absent: distended, tenderness, guarding, rebound, rigid Back exam: Present: tenderness, muscle spasm, paraspinal tenderness. Absent: full ROM, vertebral tenderness Neurological exam: Present: alert, oriented X3, reflexes normal. Absent: motor sensory deficit Skin exam: Present: warm, dry, intact, normal color. Absent: rash Course Vital Signs 10/06/21 07:52 Temperature 97.6 F Pulse Rate 73 Respiratory 18 Rate Blood Pressure 127/76 O2 Sat by Pulse 100 Oximetry Medical Decision Making - Medical Decision Making CT report was reviewed. Patient has no red flag symptoms. Patient provided pain control be discharged in stable condition return parameters were discussed. Disposition Clinical Impression: Lumbar disc herniation with radiculopathy Disposition: HOME SELF-CARE Condition: Stable Instructions (If sedation given, give patient instructions): Acute Low Back Pain (ED) Additional Instructions: Please return to the Emergency Department if symptoms worsen or any other conc erns. Prescriptions: HYDROcodone/APAP 5-325MG [Tarrs 5] 1 each PO Q6HR PRN #12 tab PRN Reason: Pain Is patient prescribed a controlled substance at d/c from ED?: Yes When asked, does pt state using other controlled substances?: Yes If prescribed controlled substance>3 days was MAPS reviewed?: Prescribed <3 Days If opioid is for acute pain is fill amount 7 days or less?: Yes If Rx opioid, was Start Talking consent form obtained?: Yes Referrals: None,Stated [Primary Care Provider] - 1-2 days Time of Disposition: 09:34
== END 2021-10-06 10:25 | disposition home or self-care (01) ==
LOC: EC 07:48
DX: M51.16 Intervertebral disc disorders with radiculopathy, lumbar region (principal); F17.200 Nicotine dependence, unspecified, uncomplicated; F12.90 Cannabis use, unspecified, uncomplicated
CPT/HCPCS: 99283; 96374; 96375 ×5; J2360; J2930; J2405; J1170; J1885

== ENCOUNTER 2021-10-18 23:13 | Emergency (ER) | payer OTHER ==
[2021-10-19 03:27] VITALS: RESP 16; TEMP 98.2
[2021-10-19] MEDS ORDERED: KETOROLAC 15 MG/ML 1 ML VIAL IM STA (03:29)
[2021-10-19] MEDS ORDERED: ORPHENADRINE 30 MG/ML 2 ML VIAL IM STA (03:29)
--- NOTE | 2021-10-19 03:34 | ED ---
Back Pain HPI - General Chief Complaint: Back Pain/Injury Stated Complaint: Lower Back Pain, Right Leg Pain Time Seen by Provider: 10/19/21 03:20 Source: patient, RN notes reviewed Limitations: no limitations - History of Present Illness Initial Comments: This is a pleasant 28-year-old male who presents to emergency department complaining of ongoing lower back pain with radiation of pain to the right thigh area. Patient states pain is cramping like in exacerbated by movement. Alleviated by position some rest. Patient has had a corticosteroid pack. Patient a computed tomography scan done at [facility] which did show a herniated disc. Patient has Novar bladder problems. No saddle anesthesia. No fever or chills. No direct trauma. Patient states he is unable to take any time off work because he works for himself and this is likely exacerbating the pain. No headache, no fever or chills, no changes in vision or hearing, no sore throat or difficulty with speech, no neck pain, no chest pain or shortness of breath, no abdominal pain, no nausea or vomiting, no changes in urination or bowel movements, SOME tingling in the anterior aspect of the right thigh no extremity pain, no skin rashes or lesions. Past medical, surgical, social, and family history reviewed. MD Complaint: back pain Onset/Timin -: week(s) Similar Symptoms Previously: Yes - Related Data Home Medications Medication Instructions Recorded Confirmed Ibuprofen [Motrin Ib] 400 mg PO Q8H PRN 09/14/20 01/12/21 Previous Rx's Medication Instructions Recorded HYDROcodone/APAP 7.5-325MG [Romney 1 each PO Q6HR PRN #18 tab 01/12/21 7.5] HYDROcodone/APAP 5-325MG [Romney 5] 1 each PO Q6HR PRN #12 tab 10/06/21 Acetaminophen Tab [Tylenol Tab] 500 mg PO Q6H PRN #24 tablet 10/19/21 Diclofenac Sodium [Voltaren] 50 mg PO TID PRN #24 tab 10/19/21 tiZANidine HCL [Zanaflex] 4 mg PO Q6H PRN #24 capsule 10/19/21 Allergies Allergy/AdvReac Type Severity Reaction Status Date / Time No Known Allergies Allergy Verified 10/19/21 03:24 Review of Systems ROS Statement: Those systems with pertinent positive or pertinent negative responses have been documented in the HPI. ROS Other: All systems not noted in ROS Statement are negative. Past Medical History Past Medical History: No Reported History History of Any Multi-Drug Resistant Organisms: None Reported Past Surgical History: Orthopedic Surgery Additional Past Surgical History / Comment(s): right knee SX Past Anesthesia/Blood Transfusion Reactions: No Reported Reaction Past Psychological History: PTSD Smoking Status: Current every day smoker Past Alcohol Use History: None Reported Past Drug Use History: Marijuana - Past Family History Brother(s) Family Medical History: Deep Vein Thrombosis (DVT) General Exam Limitations: no limitations General appearance: alert, in distress Head exam: Present: atraumatic, normocephalic, normal inspection Eye exam: Present: normal appearance, PERRL, EOMI. Absent: scleral icterus, conjunctival injection, periorbital swelling ENT exam: Present: normal exam, mucous membranes moist Neck exam: Present: normal inspection, full ROM. Absent: tenderness, meningismus, lymphadenopathy Respiratory exam: Present: normal lung sounds bilaterally. Absent: respiratory distress, wheezes, rales, rhonchi, stridor Cardiovascular Exam: Present: regular rate, normal rhythm, normal heart sounds. Absent: systolic murmur, diastolic murmur, rubs, gallop, clicks GI/Abdominal exam: Present: soft. Absent: distended, tenderness, guarding, rebound, rigid Extremities exam: Present: normal inspection, full ROM, normal capillary refill. Absent: tenderness, pedal edema, joint swelling, calf tenderness Back exam: Present: normal inspection, muscle spasm (Right lumbar), paraspinal tenderness (Right lumbar). Absent: full ROM, vertebral tenderness, rash noted Neurological exam: Present: alert, oriented X3, CN II-XII intact, normal gait (Normal but slow and guarded), reflexes normal, other (Great toe extensor strength is normal, sensory status intact). Absent: motor sensory deficit Psychiatric exam: Present: normal affect, normal mood Skin exam: Present: warm, dry, intact, normal color. Absent: rash Course Vital Signs 10/18/21 23:58 Temperature 98.2 F Pulse Rate 94 Respiratory 16 Rate Blood Pressure 119/75 O2 Sat by Pulse 98 Oximetry Medical Decision Making - Medical Decision Making -There are no red flags for concerning back pathology. Specifically: -No history of cancer, this is not a mass effect, MRI not indicated. -No anticoagulation, this is not a bleed. -No fevers, no IVDU, this is not an infectious process. -No trauma, no bony pain, x-rays are not indicated. -With a normal neuro exam, and no urinary or bowel retention or incontinence, there is no clinical sign of motor defect or cauda equina - MRI is not indicated at this point. -No pulsating abdominal mass or risk factors for AAA. -Pain is relieved with rest, which is also less concerning. -I do not believe that x-rays or emergent MRI is indicated at this time. -We will treat symptomatically and discharge home with follow up instructions. -Stretching/strengthening exercise given to patient and they will be referred to physical therapy Patient was told to return to the ER for any signs or symptoms worsen. Told to return immediately if any other problems arise. All questions answered. Treatment plan discussed. Patient in agreement Every effort has been made to ensure accuracy of this dictation. However, due to the limitations of electronic medical records and dictation devices, errors in charting still occur. Design Project Manager Dr. Fraser Disposition Clinical Impression: Lumbar back pain with radiculopathy affecting right lower extremity Disposition: HOME SELF-CARE Condition: Good Instructions (If sedation given, give patient instructions): Lumbar Radiculopathy (ED) Additional Instructions: Follow-up with your regular physician as directed. Return to the ER immediately if any symptoms worsen, new symptoms arise, or any other problems develop. Call the back specialist at 8 AM to schedule an appointment. Prescriptions: Acetaminophen Tab [Tylenol Tab] 500 mg PO Q6H PRN #24 tablet PRN Reason: Pain Diclofenac Sodium [Voltaren] 50 mg PO TID PRN #24 tab PRN Reason: Pain tiZANidine HCL [Zanaflex] 4 mg PO Q6H PRN #24 capsule PRN Reason: Spasms Is patient prescribed a controlled substance at d/c from ED?: No Referrals: Bridger Barba DO [Doctor of Osteopathic Medicine] - 10/21/21 Time of Disposition: 03:34
[2021-10-19 03:54] VITALS: BP 123/76; PULSE 78
== END 2021-10-19 03:53 | disposition home or self-care (01) ==
LOC: EC 23:13
DX: M54.16 Radiculopathy, lumbar region (principal); F17.200 Nicotine dependence, unspecified, uncomplicated